=== PATIENT | female | born 1985 | race American Indian/Alaskan Native ===

== ENCOUNTER 2021-02-17 13:53 | Emergency (ER) | payer SELFPAY ==
[2021-02-17 16:39] VITALS: BP 147/83
[2021-02-17] MEDS ORDERED: ONDANSETRON 4 MG ODT TAB PO ONE (18:30)
[2021-02-17] MEDS ORDERED: IBUPROFEN 600 MG TAB PO ONE (18:30)
[2021-02-17 19:00] LABS: Basophils # (Auto) 0.1 K/mm3 (0.0-0.1); Basophils % (Auto) 0.6 % (0.0-1.8); Eosinophils # (Auto) 0.2 K/mm3 (0.0-0.4); Eosinophils % (Auto) 2.1 % (0.0-4.3); Hematocrit 37.7 % (30.3-42.9); Hemoglobin 12.9 gm/dl (10.1-14.3); Lymphocytes # (Auto) 3.2 K/mm3 (1.2-5.4); Lymphocytes % (Auto) 32.9 % (13.4-35.0); Mean Corpuscular HGB Conc 34 % (30-34); Mean Corpuscular Volume 97 fl (79-97); Monocytes # (Auto) 0.7 K/mm3 (0.0-0.8); Monocytes % (Auto) 7.6 % (0.0-7.3); Platelet Count 283 K/mm3 (140-440); Red Blood Count 3.88 M/mm3 (3.65-5.03); Red Cell Distribution Width 14.1 % (13.2-15.2)
[2021-02-17 19:02] LABS: Alanine Aminotransferase 23 units/L (7-56); Albumin 4.5 g/dL (3.9-5); Blood Urea Nitrogen 11 mg/dL (7-17); Calcium 9.1 mg/dL (8.4-10.2); Hemolysis Index 6
--- NOTE | 2021-02-17 19:03 | Emergency Department Report ---
ED Abdominal Pain HPI - General Chief Complaint: Abdominal Pain Stated Complaint: ABD PAIN Time Seen by Provider: 02/17/21 18:30 Source: patient Mode of arrival: Ambulatory Limitations: No Limitations - History of Present Illness Initial Comments: Patient is a 35-year-old female presents emergency room complaints of lower abdominal pain that began this morning around 7 AM. She states that she is also been having nausea and vomiting. Patient states that she has a history of a ruptured ovarian cyst and gets concerned that she may have a cyst again. She denies any fever, diarrhea, hematochezia, melena, hematemesis, urinary symptoms, abnormal vaginal discharge, vaginal bleeding. She states that she last saw an [facility] approximately a year ago. She denies any concerns for STDs. No other past medical history. No allergies for medications. She has not taken anything for her symptoms. Severity scale (0 -10): 8 - Related Data Previous Rx's Medication Instructions Recorded Last Taken Type Fluconazole [Diflucan TAB] 150 mg PO QDAY 1 Days #3 tablet 02/17/21 Unknown Rx Ondansetron [Zofran Odt] 4 mg PO Q8HR PRN #10 tab.rapdis 02/17/21 Unknown Rx cephALEXin [Keflex] 500 mg PO BID 7 Days #14 capsule 02/17/21 Unknown Rx Allergies Allergy/AdvReac Type Severity Reaction Status Date / Time No Known Allergies Allergy Unverified 02/17/21 16:35 ED Review of Systems ROS: Stated complaint: ABD PAIN Other details as noted in HPI Comment: All other systems reviewed and negative ED Past Medical Hx - Past Medical History Previous Medical History?: Yes Additional medical history: Ovarian cysts - Surgical History Past Surgical History?: Yes Additional Surgical History: C section - Medications Home Medications: Home Medications Medication Instructions Recorded Confirmed Last Taken Type Fluconazole [Diflucan TAB] 150 mg PO QDAY 1 Days #3 tablet 02/17/21 Unknown Rx Ondansetron [Zofran Odt] 4 mg PO Q8HR PRN #10 tab.rapdis 02/17/21 Unknown Rx cephALEXin [Keflex] 500 mg PO BID 7 Days #14 capsule 02/17/21 Unknown Rx ED Physical Exam - General Limitations: No Limitations General appearance: alert, in no apparent distress - Head Head exam: Present: atraumatic, normocephalic - Eye Eye exam: Present: normal appearance - ENT ENT exam: Present: mucous membranes moist - Respiratory Respiratory exam: Present: normal lung sounds bilaterally. Absent: respiratory distress, wheezes, rales, rhonchi, stridor, chest wall tenderness, accessory muscle use, decreased breath sounds, prolonged expiratory - Cardiovascular Cardiovascular Exam: Present: regular rate, normal rhythm, normal heart sounds. Absent: systolic murmur, diastolic murmur, rubs, gallop - GI/Abdominal GI/Abdominal exam: Present: soft, tenderness (mild suprapubic), normal bowel sounds. Absent: distended, guarding, rebound, rigid - Neurological Exam Neurological exam: Present: alert, oriented X3 - Psychiatric Psychiatric exam: Present: normal affect, normal mood - Skin Skin exam: Present: warm, dry, intact ED Course Vital Signs 02/17/21 02/17/21 16:37 21:46 Temperature 99.3 F Pulse Rate 71 74 Respiratory 16 17 Rate Blood Pressure 147/83 [Right] O2 Sat by Pulse 100 97 Oximetry ED Medical Decision Making - Lab Data Result diagrams: 02/17/21 18:32 02/17/21 18:32 Lab Results 02/17/21 02/17/21 02/17/21 Range/Units 18:32 18:32 18:32 WBC 9.7 (4.5-11.0) K/mm3 RBC 3.88 (3.65-5.03) M/mm3 Hgb 12.9 (10.1-14.3) gm/dl Hct 37.7 (30.3-42.9) % MCV 97 (79-97) fl MCH 33 H (28-32) pg MCHC 34 (30-34) % RDW 14.1 (13.2-15.2) % Plt Count 283 (140-440) K/mm3 Lymph % (Auto) 32.9 (13.4-35.0) % Robertson % (Auto) 7.6 H (0.0-7.3) % Eos % (Auto) 2.1 (0.0-4.3) % Baso % (Auto) 0.6 (0.0-1.8) % Lymph # (Auto) 3.2 (1.2-5.4) K/mm3 Robertson # (Auto) 0.7 (0.0-0.8) K/mm3 Eos # (Auto) 0.2 (0.0-0.4) K/mm3 Baso # (Auto) 0.1 (0.0-0.1) K/mm3 Seg Neutrophils % 56.8 (40.0-70.0) % Seg Neutrophils # 5.5 (1.8-7.7) K/mm3 Sodium 136 L (137-145) mmol/L Potassium 3.6 (3.6-5.0) mmol/L Chloride 101.8 (98-107) mmol/L Carbon Dioxide 24 (22-30) mmol/L Anion Gap 14 mmol/L BUN 11 (7-17) mg/dL Creatinine 0.5 L (0.6-1.2) mg/dL Estimated GFR > 60 ml/min BUN/Creatinine Ratio 22 % Glucose 86 (65-100) mg/dL Calcium 9.1 (8.4-10.2) mg/dL Total Bilirubin 0.40 (0.1-1.2) mg/dL AST 17 (5-40) units/L ALT 23 (7-56) units/L Alkaline Phosphatase 49 (35-129) units/L Total Protein 7.6 (6.3-8.2) g/dL Albumin 4.5 (3.9-5) g/dL Albumin/Globulin Ratio 1.5 % Lipase 24 (13-60) units/L HCG, Quant < 2 (0-4) mIU/mL Urine Color (Yellow) Urine Turbidity (Clear) Urine pH (5.0-7.0) Ur Specific Bruno (1.003-1.030) Urine Protein (Negative) mg/dL Urine Glucose (UA) (Negative) mg/dL Urine Ketones (Negative) mg/dL Urine Blood (Negative) Urine Nitrite (Negative) Urine Bilirubin (Negative) Urine Urobilinogen (<2.0) mg/dL Ur Leukocyte Esterase (Negative) Urine WBC (Auto) (0.0-6.0) /HPF Urine RBC (Auto) (0.0-6.0) /HPF U Epithel Cells (Auto) (0-13.0) /HPF Urine Bacteria (Auto) (Negative) /HPF Hyaline Casts /LPF Urine Mucus /HPF Urine Yeast (Budding) /HPF 02/17/21 Range/Units Unknown WBC (4.5-11.0) K/mm3 RBC (3.65-5.03) M/mm3 Hgb (10.1-14.3) gm/dl Hct (30.3-42.9) % MCV (79-97) fl MCH (28-32) pg MCHC (30-34) % RDW (13.2-15.2) % Plt Count (140-440) K/mm3 Lymph % (Auto) (13.4-35.0) % Robertson % (Auto) (0.0-7.3) % Eos % (Auto) (0.0-4.3) % Baso % (Auto) (0.0-1.8) % Lymph # (Auto) (1.2-5.4) K/mm3 Robertson # (Auto) (0.0-0.8) K/mm3 Eos # (Auto) (0.0-0.4) K/mm3 Baso # (Auto) (0.0-0.1) K/mm3 Seg Neutrophils % (40.0-70.0) % Seg Neutrophils # (1.8-7.7) K/mm3 Sodium (137-145) mmol/L Potassium (3.6-5.0) mmol/L Chloride (98-107) mmol/L Carbon Dioxide (22-30) mmol/L Anion Gap mmol/L BUN (7-17) mg/dL Creatinine (0.6-1.2) mg/dL Estimated GFR ml/min BUN/Creatinine Ratio % Glucose (65-100) mg/dL Calcium (8.4-10.2) mg/dL Total Bilirubin (0.1-1.2) mg/dL AST (5-40) units/L ALT (7-56) units/L Alkaline Phosphatase (35-129) units/L Total Protein (6.3-8.2) g/dL Albumin (3.9-5) g/dL Albumin/Globulin Ratio % Lipase (13-60) units/L HCG, Quant (0-4) mIU/mL Urine Color Yellow (Yellow) Urine Turbidity Slightly-cloudy (Clear) Urine pH 7.0 (5.0-7.0) Ur Specific Bruno 1.025 (1.003-1.030) Urine Protein 30 mg/dl (Negative) mg/dL Urine Glucose (UA) Neg (Negative) mg/dL Urine Ketones Neg (Negative) mg/dL Urine Blood Neg (Negative) Urine Nitrite Pos (Negative) Urine Bilirubin Neg (Negative) Urine Urobilinogen < 2.0 (<2.0) mg/dL Ur Leukocyte Esterase Tr (Negative) Urine WBC (Auto) 4.0 (0.0-6.0) /HPF Urine RBC (Auto) 12.0 (0.0-6.0) /HPF U Epithel Cells (Auto) 2.0 (0-13.0) /HPF Urine Bacteria (Auto) 1+ (Negative) /HPF Hyaline Casts 2 /LPF Urine Mucus 3+ /HPF Urine Yeast (Budding) 1+ /HPF Vital Signs 02/17/21 02/17/21 16:37 21:46 Temperature 99.3 F Pulse Rate 71 74 Respiratory 16 17 Rate Blood Pressure 147/83 [Right] O2 Sat by Pulse 100 97 Oximetry - Radiology Data Radiology results: report reviewed Ordering Physician: RONNA OLEA Date of Service: 02/17/21 Procedure(s): US pelvic complete Accession Number(s): [id number] cc: RONNA OLEA ULTRASOUND PELVIS INDICATION / CLINICAL INFORMATION: lower abd pain, hx of ovarian cyst. TECHNIQUE: Transabdominal. Duplex Color Doppler used: Yes. COMPARISON: None available FINDINGS: UTERUS: The uterus is unremarkable measuring 8.1 x 4.6 x 6.8 cm. No focal uterine mass. Endometrial thickness is normal measuring 7-8 mm. RIGHT ADNEXA: No significant ovarian cyst or mass. Normal color Doppler blood flow. LEFT ADNEXA: No significant ovarian cyst or mass. Normal color Doppler blood flow. FREE FLUID: None. ADDITIONAL FINDINGS: None. IMPRESSION: 1. No significant abnormality. Signer Name: Michelle Amador MD Signed: 02/17/2021 8:36 PM Workstation Name: [id number] Transcribed By: JR Dictated By: Michelle Amador MD Electronically Authenticated By: Michelle Amador MD Signed Date/Time: 02/17/212035 DD/ 33 TD/TT: - Medical Decision Making Patient is a 35-year-old female presents emergency room complaints of lower abdominal pain that began this morning around 7 AM. She states that she is also been having nausea and vomiting. Patient states that she has a history of a ruptured ovarian cyst and gets concerned that she may have a cyst again. She denies any fever, diarrhea, hematochezia, melena, hematemesis, urinary symptoms, abnormal vaginal discharge, vaginal bleeding. She states that she last saw an [facility] [employer] [facility] approximately a year ago. She denies any concerns for STDs. No other past medical history. No allergies for medications. She has not taken anything for her symptoms. vss. on exam mild suprapubic abdominal tenderness on exam, no guarding, no rebound, no rigidity, normal bowel sounds, no peritoneal signs. Labs are normal. UA shows 1+ bacteria, positive nitrites, trace leukocyte esterase, yeast. pelvic US: IMPRESSION: 1. No significant abnormality. Patient given p.o. medications while in the emergency department was able to tolerate p.o. intake without any difficulty, symptoms have improved, she has had no episodes of vomiting while the emergency department. Patient given prescr iptions for medications. Advised patient Please take medication as prescribed. Please follow-up with your primary care doctor and [facility]. Please have your urine retested for clearance of bacteria and yeast. Return to emergency room for any new or worsening symptoms including but not limited to worsening abdominal pain, fever, continued vomiting, unable to tolerate by mouth intake, etc. Critical care attestation.: If time is entered above; I have spent that time in minutes in the direct care of this critically ill patient, excluding procedure time. ED Disposition Clinical Impression: Yeast detected UTI (urinary tract infection) Qualifiers: Urinary tract infection type: acute cystitis Hematuria presence: with hematuria Qualified Code(s): N30.01 - Acute cystitis with hematuria Abdominal pain Qualifiers: Abdominal location: lower abdomen, unspecified Qualified Code(s): R10.30 - Lower abdominal pain, unspecified Disposition: - TO HOME OR SELFCARE Is pt being admited?: No Does the pt Need Aspirin: No Condition: Stable Instructions: Vaginal Yeast Infection, Adult, Abdominal Pain, Adult, [id number], Urinary Tract Infection, Adult, Abdominal Pain (ED) Additional Instructions: Please take medication as prescribed. Please follow-up with your primary care doctor and [facility]. Please have your urine retested for clearance of bacteria and yeast. Return to emergency room for any new or worsening symptoms including but not limited to worsening abdominal pain, fever, continued vomiting, unable to tolerate by mouth intake, etc. Prescriptions: Fluconazole [Diflucan TAB] 150 mg PO QDAY 1 Days #3 tablet cephALEXin [Keflex] 500 mg PO BID 7 Days #14 capsule Ondansetron [Zofran Odt] 4 mg PO Q8HR PRN #10 tab.rapdis PRN Reason: nausea/vomiting Referrals: PRIMARY CARE, [Primary Care Provider] - 2-3 Days [facility] [Provider Group] - 2-3 Days Forms: Work/School Release Form(ED) Time of Disposition: 21:28 Print Language: KOREAN
[2021-02-17 19:10] LABS: BUN/Creatinine Ratio 22
--- NOTE | 2021-02-17 20:41 | Ultrasound Report ---
ULTRASOUND PELVIS INDICATION / CLINICAL INFORMATION: lower abd pain, hx of ovarian cyst. TECHNIQUE: Transabdominal. Duplex Color Doppler used: Yes. COMPARISON: None available FINDINGS: UTERUS: The uterus is unremarkable measuring 8.1 x 4.6 x 6.8 cm. No focal uterine mass. Endometrial t hickness is normal measuring 7-8 mm. RIGHT ADNEXA: No significant ovarian cyst or mass. Normal color Doppler blood flow. LEFT ADNEXA: No significant ovarian cyst or mass. Normal color Doppler blood flow. FREE FLUID: None. ADDITIONAL FINDINGS: None. IMPRESSION: 1. No significant abnormality. Signer Name: Michelle Amador MD Signed: 02/17/2021 8:36 PM Workstation Name: [id number]
[2021-02-17 21:16] LABS: Bacteria,Urine 1+ /HPF (Negative); Bilirubin,Urine NEG (Negative); Blood,Urine NEG (Negative); Color,Urine Yellow (Yellow); Hyaline Casts,Urine 2 /LPF; Mucus,Urine 3+ /HPF; Urobilinogen,Urine < 2.0 mg/dL (<2.0)
== END 2021-02-17 21:46 | disposition home or self-care (01) ==
LOC: ED 13:53
DX: N39.0 Urinary tract infection, site not specified (principal); B37.9 Candidiasis, unspecified; Z98.890 Other specified postprocedural states; Z79.899 Other long term (current) drug therapy
CPT/HCPCS: 36415; 76856; 80053; 81001; 83690; 84702; 85025; 99284; Q0162